=== PATIENT | female | born 2000 | race Caucasian/White ===

== ENCOUNTER 2021-04-11 00:01 | Emergency (ER) | payer MEDICAID ==
[2021-04-11] MEDS ORDERED: TYLENOL 325 MG PO ONE (00:28)
[2021-04-11] MEDS ORDERED: Sodium Chloride 0.9% 1000 ML 1,000 ML IV STA (00:28)
[2021-04-11] MEDS ORDERED: MORPHINE SULFATE 4 MG INJ IV ONE (00:28)
[2021-04-11] MEDS ORDERED: Zofran 4 MG/2 ML VIAL IV ONE (00:28)
--- NOTE | 2021-04-11 00:38 | ERPHSYRPT ---
- History of Present Illness Time Seen by Provider: 04/11/21 00:04 Source: patient Exam Limitations: no limitations Patient Subjective Stated Complaint: Patient states " I have been having ABD pain since yesterday and tonight it has gotten real sharp to where i can hardly walk." Triage Nursing Assessment: Patient arrived to ED and ambulated back to room without difficulty. Physician History: Location: epigastric Quality: sharp Radiation: none Severity: moderate Duration: 2 days Timing: gradual Modifying factors/associated signs and symptoms: shani Patient here with 2 days of of epigastric, periumbilical pain. No falls no trauma. States that her last menstrual cycle was 14 days ago. No fever no chills. States she mostly just feels nauseous. She is have some abnormal bowel movements. She has not seen her PCP for this. Timing/Duration: today Severity: moderate Modifying Factors: Improves With: other Associated Symptoms: denies symptoms Allergies/Adverse Reactions: Penicillins Allergy (Verified 04/11/21 00:09) Home Medications: No Reportable Medications [No Reported Medications] 04/11/21 [History] Hx Tetanus, Diphtheria Vaccination/Date Given: Yes Hx Influenza Vaccination/Date Given: No Hx Pneumococcal Vaccination/Date Given: No Immunizations Up to Date: Yes Travel Risk - International Travel Have you traveled outside of the country in past 3 weeks: No - Coronavirus Screening Are you exhibiting any of the following symptoms?: No Close contact with a COVID-19 positive Pt in past 14-21 Days: No - Vaccine Status Have you recieved a Covid-19 vaccination: No - Review of Systems Constitutional: No Fever, No Chills Eyes: No Symptoms Ears, Nose, & Throat: No Symptoms Respiratory: No Cough, No Dyspnea Cardiac: No Chest Pain, No Edema, No Syncope Abdominal/Gastrointestinal: Abdominal Pain, Nausea, No Vomiting, No Diarrhea Genitourinary Symptoms: No Dysuria Musculoskeletal: No Back Pain, No Neck Pain Skin: No Rash Neurological: No Dizziness, No Focal Weakness, No Sensory Changes Psychological: No Symptoms Endocrine: No Symptoms All Other Systems: Reviewed and Negative - Past Medical History Pertinent Past Medical History: No Neurological History: No Pertinent History ENT History: No Pertinent History Cardiac History: No Pertinent History Respiratory History: No Pertinent History Endocrine Medical History: No Pertinent History Musculoskeletal History: No Pertinent History GI Medical History: No Pertinent History History: No Pertinent History Psycho-Social History: No Pertinent History Female Reproductive Disorders: No Pertinent History - Past Surgical History Past Surgical History: No Neuro Surgical History: No Pertinent History Cardiac: No Pertinent History Respiratory: No Pertinent History Gastrointestinal: No Pertinent History Genitourinary: No Pertinent History Musculoskeletal: No Pertinent History Female Surgical History: No Pertinent History - Social History Smoking Status: Never smoker Exposure to second hand smoke: Yes Drug Use: none Patient Lives Alone: No - Female History Hx Last Menstrual Period: 03/05/21 Hx Now: No - Nursing Vital Signs Nursing Vital Signs: Initial Vital Signs Temperature 98.3 F 04/11/21 00:03 Pulse Rate 80 04/11/21 00:03 Respiratory Rate 18 04/11/21 00:03 Blood Pressure 136/92 04/11/21 00:03 O2 Sat by Pulse Oximetry 100 04/11/21 00:03 Pain Scale Pain Intensity 4 - Physical Exam General Appearance: no apparent distress, alert Eye Exam: PERRL/EOMI, eyes nml inspection Ears, Nose, Throat Exam: normal ENT inspection, TMs normal, pharynx normal, moist mucous membranes Neck Exam: normal inspection, non-tender, supple, full range of motion Respiratory Exam: normal breath sounds, lungs clear, No respiratory distress Cardiovascular Exam: regular rate/rhythm, normal heart sounds, normal peripheral pulses Gastrointestinal/Abdomen Exam: soft, normal bowel sounds, other (Abdominal pain no rebound no guarding: Still minimal tenderness.), No tenderness, No mass Back Exam: normal inspection, normal range of motion, No CVA tenderness, No vertebral tenderness Extremity Exam: normal inspection, normal range of motion, pelvis stable Neurologic Exam: alert, oriented x 3, cooperative, normal mood/affect, nml cerebellar function, nml station & gait, sensation nml, No motor deficits Skin Exam: normal color, warm, dry, No rash Lymphatic Exam: No adenopathy SpO2: 100 - Course Nursing assessment & vital signs reviewed: Yes Ordered Tests: Active Orders 24 hr Category Date Time Status IV Insertion STAT Care 04/11/21 00:28 Active ABDOMEN AND PELVIS W CONTRAST [CT] Stat Exams 04/11/21 01:37 Taken CBC W DIFF Stat Lab 04/11/21 00:38 Completed CMP Stat Lab 04/11/21 00:38 Completed HCG QUALITATIVE,SERUM Stat Lab 04/11/21 00:38 Completed LIPASE Stat Lab 04/11/21 00:38 Completed UA W/RFX UR CULTURE Stat Lab 04/11/21 02:42 Completed Medication Summary Discontinued Medications Generic Name Dose Route Start Last Admin Trade Name Chan PRTahir Reason Stop Dose Admin Acetaminophen 975 mg 04/11/21 00:28 04/11/21 00:45 Acetaminophen 325 Mg Tablet PO 04/11/21 00:29 975 mg STAT ONE Administration Acetaminophen Confirm 04/11/21 00:40 Acetaminophen 325 Mg Tablet Administered 04/11/21 00:41 Dose 975 mg .ROUTE .STK-MED ONE Sodium Chloride 1,000 mls @ 999 mls/hr 04/11/21 00:28 04/11/21 01:52 Sodium Chloride 0.9% 1000 Ml IV 04/11/21 01:28 Infused .Q1H1M STA Infusion Sodium Chloride Confirm 04/11/21 00:40 Sodium Chloride 0.9% 1000 Ml Administered 04/11/21 00:41 Dose 1,000 mls @ ud .ROUTE .STK-MED ONE Morphine Sulfate 4 mg 04/11/21 00:28 04/11/21 00:45 Morphine Sulfate 4 Mg/Ml Injection IV 04/11/21 00:29 4 mg STAT ONE Administration Morphine Sulfate Confirm 04/11/21 00:40 Morphine Sulfate 4 Mg/Ml Injection Administered 04/11/21 00:41 Dose 4 mg .ROUTE .STK-MED ONE Ondansetron HCl 4 mg 04/11/21 00:28 04/11/21 00:45 Ondansetron Hcl 4 Mg/2 Ml Vial IV 04/11/21 00:29 4 mg STAT ONE Administration Ondansetron HCl Confirm 04/11/21 00:39 Ondansetron Hcl 4 Mg/2 Ml Vial Administered 04/11/21 00:40 Dose 4 mg .ROUTE .STK-MED ONE Lab/Rad Data: Laboratory Result Diagrams 04/11/21 00:38 04/11/21 00:38 Laboratory Results 04/11/21 04/11/21 04/11/21 Range/Units 02:42 00:38 00:38 WBC (4.0-10.5) K/mm3 RBC (4.1-5.4) M/mm3 Hgb (12.0-16.0) gm/dl Hct (35-47) % MCV (78-100) fl MCH (26-32) pg MCHC (32-36) g/dl RDW (11.5-14.0) % Plt Count (150-450) K/mm3 MPV (7.5-11.0) fl Gran % (36.0-66.0) % Eos # (Auto) (0-0.5) Absolute Lymphs (auto) (1.0-4.6) Absolute Monos (auto) (0.0-1.3) Lymphocytes % (24.0-44.0) % Monocytes % (0.0-12.0) % Eosinophils % (0.00-5.0) % Basophils % (0.0-0.4) % Absolute Granulocytes (1.4-6.9) Basophils # (0-0.4) Sodium 140 (137-145) mmol/L Potassium 3.4 L (3.5-5.1) mmol/L Chloride 99 (98-107) mmol/L Carbon Dioxide 26 (22-30) mmol/L Anion Gap 18.0 H (5-15) MEQ/L BUN 15 (7-17) mg/dL Creatinine 0.92 (0.52-1.04) mg/dL Estimated GFR > 60.0 ML/MIN Glucose 124 H (74-106) mg/dL Calcium 9.8 (8.4-10.2) mg/dL Total Bilirubin 0.80 (0.2-1.3) mg/dL AST 20 (14-36) U/L ALT 15 (0-35) U/L Alkaline Phosphatase 90 (38-126) U/L Serum Total Protein 9.0 H (6.3-8.2) g/dL Albumin 5.2 H (3.5-5.0) g/dL Lipase 84 (23-300) U/L Serum , Qual NEGATIVE (Negative) Urine Color YELLOW (YELLOW) Urine Appearance CLEAR (CLEAR) Urine pH 5.0 (5-6) Ur Specific [place] S3 (1.005-1.025) Urine Protein NEGATIVE (Negative) Urine Ketones MODERATE (NEGATIVE) Urine Blood NEGATIVE (0-5) Drake/ul Urine Nitrite NEGATIVE (NEGATIVE) Urine Bilirubin NEGATIVE (NEGATIVE) Urine Urobilinogen NEGATIVE (0-1) mg/dL Ur Leukocyte Esterase TRACE (NEGATIVE) Urine WBC (Auto) 6-10 (0-5) /HPF Urine RBC (Auto) 0-2 (0-2) /HPF U Epithel Cells (Auto) FEW (FEW) /HPF Urine Bacteria (Auto) NONE SEEN (NEGATIVE) /HPF Urine Mucus (Auto) SLIGHT (NEGATIVE) /HPF Urine Culture Reflexed NO (NO) Urine Glucose NEGATIVE (NEGATIVE) mg/dL 04/11/21 Range/Units 00:38 WBC 9.8 (4.0-10.5) K/mm3 RBC 5.16 (4.1-5.4) M/mm3 Hgb 15.4 (12.0-16.0) gm/dl Hct 46.2 (35-47) % MCV 89.5 (78-100) fl MCH 29.8 (26-32) pg MCHC 33.3 (32-36) g/dl RDW 13.4 (11.5-14.0) % Plt Count 300 (150-450) K/mm3 MPV 10.1 (7.5-11.0) fl Gran % 70.8 H (36.0-66.0) % Eos # (Auto) 0.03 (0-0.5) Absolute Lymphs (auto) 1.79 (1.0-4.6) Absolute Monos (auto) 1.03 (0.0-1.3) Lymphocytes % 18.2 L (24.0-44.0) % Monocytes % 10.5 (0.0-12.0) % Eosinophils % 0.3 (0.00-5.0) % Basophils % 0.2 (0.0-0.4) % Absolute Granulocytes 6.97 H (1.4-6.9) Basophils # 0.02 (0-0.4) Sodium (137-145) mmol/L Potassium (3.5-5.1) mmol/L Chloride (98-107) mmol/L Carbon Dioxide (22-30) mmol/L Anion Gap (5-15) MEQ/L BUN (7-17) mg/dL Creatinine (0.52-1.04) mg/dL Estimated GFR ML/MIN Glucose (74-106) mg/dL Calcium (8.4-10.2) mg/dL Total Bilirubin (0.2-1.3) mg/dL AST (14-36) U/L ALT (0-35) U/L Alkaline Phosphatase (38-126) U/L Serum Total Protein (6.3-8.2) g/dL Albumin (3.5-5.0) g/dL Lipase (23-300) U/L Serum , Qual (Negative) Urine Color (YELLOW) Urine Appearance (CLEAR) Urine pH (5-6) Ur Specific [place] (1.005-1.025) Urine Protein (Negative) Urine Ketones (NEGATIVE) Urine Blood (0-5) Drake/ul Urine Nitrite (NEGATIVE) Urine Bilirubin (NEGATIVE) Urine Urobilinogen (0-1) mg/dL Ur Leukocyte Esterase (NEGATIVE) Urine WBC (Auto) (0-5) /HPF Urine RBC (Auto) (0-2) /HPF U Epithel Cells (Auto) (FEW) /HPF Urine Bacteria (Auto) (NEGATIVE) /HPF Urine Mucus (Auto) (NEGATIVE) /HPF Urine Culture Reflexed (NO) Urine Glucose (NEGATIVE) mg/dL - Progress Progress: improved Progress Note: 04/11/21 00:38 differential diagnosis includes kidney stone, compression fracture, infection, UTI, triple AAA - basic labs including: CBC, lipase, CMP, UA, urine - insert IV for fluids, pain meds, nausea control - consider imaging: CT ab/pelvis, or U/S based on labs and pain control 04/11/21 03:11 CT scan and labs unremarkable. Patient feeling improved. Will discharge patient home at this point time. Close follow-up with PCP. Return here for new or changing symptoms. - Departure Departure Disposition: Home Clinical Impression: Abdominal pain Condition: Stable Critical Care Time: No Referrals: DOCTOR,NO FAMILY [Primary Care Provider] - JUNAID GARCIA [ACTIVE STAFF] - Instructions: Acute Abdomen (Belly Pain), Adult (DC) Additional Instructions: See for abdominal reexam in 24-48 hours with a primary care physician. Return here for new or changing symptoms.
[2021-04-11] MEDS ORDERED: Zofran 4 MG/2 ML VIAL ONE (00:39)
[2021-04-11] MEDS ORDERED: TYLENOL 325 MG ONE (00:40)
[2021-04-11] MEDS ORDERED: Sodium Chloride 0.9% 1000 ML 1,000 ML ONE (00:40)
[2021-04-11] MEDS ORDERED: MORPHINE SULFATE 4 MG INJ ONE (00:40)
[2021-04-11 00:42] LABS: Absolute Neutrophil Ct (ANC) 6.97 (1.4-6.9); BASOPHIL % 0.2 % (0.0-0.4); Basophil (Absolute #) 0.02 (0-0.4); Eosinophil % 0.3 % (0.00-5.0); Eosinophil (Absolute #) 0.03 (0-0.5); Hematocrit 46.2 % (35-47); Hemoglobin 15.4 gm/dl (12.0-16.0); Lymphocyte (Absolute #) 1.79 (1.0-4.6); Lymphocytes % 18.2 % (24.0-44.0); Mean Cell Volume 89.5 fl (78-100); Mean Corpuscular Hemoglobin 29.8 pg (26-32); Mean Corpuscular Hgb Concent. 33.3 g/dl (32-36); Mean Platelet Volume 10.1 fl (7.5-11.0); Monocyte (Absolute #) 1.03 (0.0-1.3); Monocytes % 10.5 % (0.0-12.0); Neutrophil % 70.8 % (36.0-66.0); Platelet Count 300 K/mm3 (150-450); Red Blood Count 5.16 M/mm3 (4.1-5.4); Red Cell Distribution Width 13.4 % (11.5-14.0); White Blood Count 9.8 K/mm3 (4.0-10.5)
[2021-04-11 01:00] LABS: ALBUMIN 5.2 g/dL (3.5-5.0); ALKALINE PHOSPHATASE 90 U/L (38-126); BLOOD UREA NITROGEN 15 mg/dL (7-17); CHLORIDE 99 mmol/L (98-107); Calcium 9.8 mg/dL (8.4-10.2); Carbon Dioxide 26 mmol/L (22-30); Creatinine 1 0.92 mg/dL (0.52-1.04); EST GLOMERULAR FILTRATION RATE > 60.0 ML/MIN; Glucose 124 mg/dL (74-106); LIPASE 84 U/L (23-300); Potassium 3.4 mmol/L (3.5-5.1); SGOT/AST 20 U/L (14-36); SGPT/ALT 15 U/L (0-35); SODIUM 140 mmol/L (137-145)
[2021-04-11 02:59] LABS: Appearance CLEAR (CLEAR); Bilirubin NEGATIVE (NEGATIVE); Blood NEGATIVE Ery/ul (0-5); Glucose NEGATIVE (NEGATIVE); Ketones MODERATE (NEGATIVE); Leukocyte Esterase TRACE (NEGATIVE); Nitrite NEGATIVE (NEGATIVE); Protein,Urine Dip NEGATIVE (Negative); Urobilinogen NEGATIVE mg/dL (0-1)
[2021-04-11 03:03] VITALS: BP 139/91; PULSE 75
[2021-04-11 03:05] LABS: Bacteria NONE SEEN /HPF (NEGATIVE); Epithelial Cells FEW /HPF (FEW); Mucus SLIGHT /HPF (NEGATIVE); RBC 0-2 /HPF (0-2)
[2021-04-11 03:12] VITALS: O2SAT 100
--- NOTE | 2021-04-11 09:05 | XRAY ---
Indication: Abdomen pain, nausea, and vomiting. Appendicitis. Multiple contiguous axial images obtained through the abdomen and pelvis using 80 cc Isovue 370 contrast. Comparison: None. Lung bases are clear. Heart is not enlarged. Noncontrasted stomach and bowel loops appear nonobstructed. Normal appendix. No free fluid/air. Remaining liver, gallbladder, pancreas, spleen, adrenal glands, kidneys, ureters, bladder, uterus, and aorta are unremarkable. No pathologic retroperitoneal lymphadenopathy. Osseous structures intact. No ventral or inguinal hernias. Impression: CT abdomen/pelvis with contrast exam is negative. Comment: Preliminary interpretation made by [facility]. No critical discrepancy.
== END 2021-04-11 03:22 | disposition home or self-care (01) ==
LOC: ED 00:01
DX: R10.9 Unspecified abdominal pain (principal)
CPT/HCPCS: 36000; 36415; 74177; 80053; 81001; 81025; 83690; 85025; 96360; 96374; 96375; 99284; J2270; J2405; A9270-GY

== ENCOUNTER 2023-03-26 23:54 | Observation (INO) | payer OTHER ==
[2023-03-27 00:25] VITALS: BP 132/79; PULSE 101; RESP 18; TEMP 98.7; O2SAT 97
[2023-03-27 00:53] LABS: Amphetamine,Urine NEGATIVE (NEGATIVE); Barbiturate,Urine NEGATIVE (NEGATIVE); Benzodiazepine,Urine NEGATIVE (NEGATIVE); Cocaine,Urine NEGATIVE (NEGATIVE); Methadone,Urine NEGATIVE (NEGATIVE); Opiate,Urine NEGATIVE (NEGATIVE); PCP,Urine NEGATIVE (NEGATIVE); THC,Urine NEGATIVE (NEGATIVE)
[2023-03-27 01:09] LABS: ADD URINE CULTURE? NO (NO); Appearance Clear (Clear); Bacteria None Seen /HPF (None Seen); Bilirubin Negative (Negative); Blood Negative (Negative); Epithelial Cells Rare /HPF (None Seen); Glucose, Urine Negative (Negative); Hyaline Casts NONE SEEN /LPF (0-2); Ketones Negative (Negative); Leukocyte Esterase Trace (Negative); Nitrite Negative (Negative); Protein,Urine Dip Negative (Negative); RBC 0-2 /HPF (0-5); Specific Gravity <=1.005 (1.005-1.030); Urobilinogen 0.2 mg/dL (0.2)
[2023-03-27 02:06] LABS: CHLAMYDIA DNA DETECTED (NEGATIVE); GC DNA Probe NOT DETECTED (NEGATIVE)
[2023-03-27] MEDS ORDERED: Zithromax 250 MG TABLET PO ONE (02:14)
[2023-03-27] MEDS ORDERED: Zithromax 250 MG TABLET ONE (02:19)
== END 2023-03-27 03:00 | disposition home or self-care (01) ==
LOC: OB 23:54
PROVIDERS: ADMIT Obstetrics & Gynecology; ATTEND Obstetrics & Gynecology
DX: Z34.03 Encounter for supervision of normal first pregnancy, third trimester (principal); Z3A.31 31 weeks gestation of pregnancy
CPT/HCPCS: 80307; 81001; 87491; 87591; G0378; G0379; A9270-GY

== ENCOUNTER 2023-05-04 23:15 | Observation (INO) | payer OTHER ==
[2023-05-05 00:09] LABS: Amphetamine,Urine NEGATIVE (NEGATIVE); Barbiturate,Urine NEGATIVE (NEGATIVE); Benzodiazepine,Urine NEGATIVE (NEGATIVE); Cocaine,Urine NEGATIVE (NEGATIVE); Methadone,Urine NEGATIVE (NEGATIVE); Opiate,Urine NEGATIVE (NEGATIVE); PCP,Urine NEGATIVE (NEGATIVE); THC,Urine NEGATIVE (NEGATIVE)
[2023-05-05 00:45] LABS: Appearance Clear (Clear); Bacteria None Seen /HPF (None Seen); Bilirubin Negative (Negative); Blood Negative (Negative); Epithelial Cells None Seen /HPF (None Seen); Glucose, Urine Negative (Negative); Hyaline Casts NONE SEEN /LPF (0-2); Ketones Negative (Negative); Leukocyte Esterase Negative (Negative); Nitrite Negative (Negative); Ph 6.5 (4.6-8.0); Protein,Urine Dip Negative (Negative); RBC 0-2 /HPF (0-5); Urobilinogen 0.2 mg/dL (0.2); WBC 0-2 /HPF (0-5)
[2023-05-05 00:46] LABS: ADD URINE CULTURE? NO (NO)
[2023-05-05] MEDS ORDERED: XYLOCAINE 1% HCL 20 ML MDV IJ PRN (03:28)
[2023-05-05] MEDS ORDERED: Zofran 4 MG/2 ML VIAL IV PRN (03:28)
[2023-05-05] MEDS ORDERED: TYLENOL EXTRA STRENGTH 500 MG PO PRN (03:28)
[2023-05-05] MEDS ORDERED: CLINDAMYCIN-D5W 900 MG/50 ML*** 900 MG/50 ML BAG IV SCH (04:00)
[2023-05-05 04:15] VITALS: RESP 18; O2SAT 99
[2023-05-05 04:15] LABS: Absolute Neutrophil Ct (ANC) 12.95 x10^3/uL (1.4-6.9); BASOPHIL % 0.2 % (0.0-0.4); Basophil (Absolute #) 0.04 x10^3/uL (0-0.4); Eosinophil % 0.2 % (0.00-5.0); Eosinophil (Absolute #) 0.03 x10^3/uL (0-0.5); Hemoglobin 11.4 g/dL (12.0-16.0); IMMATURE GRAN # 0.24 x10^3u/L (0.00-0.03); IMMATURE GRAN % 1.4 % (0.00-0.4); Lymphocyte (Absolute #) 2.54 x10^3/uL (1.0-4.6); Lymphocytes % 14.9 % (24.0-44.0); Mean Cell Volume 86.5 fL (78-100); Mean Corpuscular Hemoglobin 27.4 pg (26-32); Mean Corpuscular Hgb Concent. 31.7 g/dL (32-36); Mean Platelet Volume 10.8 fL (7.5-11.0); Monocyte (Absolute #) 1.25 x10^3/uL (0.0-1.3); Monocytes % 7.3 % (0.0-12.0); Platelet Count 206 x10^3/uL (150-450); Red Blood Count 4.16 x10^6/uL (4.1-5.4); Red Cell Distribution Width 12.9 % (11.5-14.0); White Blood Count 17.1 x10^3/uL (4.0-10.5)
[2023-05-05 05:07] LABS: ABO TYPING O; Antibody Screen NEGATIVE (NEGATIVE); RH TYPING POSITIVE
[2023-05-05 10:25] LABS: CHLAMYDIA DNA NOT DETECTED (NEGATIVE); GC DNA Probe NOT DETECTED (NEGATIVE)
[2023-05-05] MEDS ORDERED: PITOCIN 30 UNITS/ LR 500 ML 30 UNITS/500 ML PLAST..BAG IV SCH (11:00)
[2023-05-05 11:16] VITALS: BP 129/87; PULSE 93; TEMP 97.8
[2023-05-05] MEDS ORDERED: Lactated Ringers 1,000 ML IV ONE (12:20)
== END 2023-05-05 11:15 | disposition home or self-care (01) ==
LOC: OB 23:15
PROVIDERS: ADMIT Obstetrics & Gynecology; ATTEND Obstetrics & Gynecology
DX: Z34.03 Encounter for supervision of normal first pregnancy, third trimester (principal); Z3A.37 37 weeks gestation of pregnancy
CPT/HCPCS: 36415; 80307; 81001; 85025; 86850; 86900; 86901; 87491; 87591; 87653; G0378; G0379

== ENCOUNTER 2023-05-06 16:40 | Observation (INO) | payer OTHER ==
[2023-05-06 21:51] VITALS: BP 124/78; PULSE 92; RESP 18; TEMP 98; O2SAT 98
== END 2023-05-06 21:45 | disposition home or self-care (01) ==
LOC: OB 16:40
PROVIDERS: ADMIT Obstetrics & Gynecology; ATTEND Obstetrics & Gynecology
DX: Z34.03 Encounter for supervision of normal first pregnancy, third trimester (principal); Z3A.37 37 weeks gestation of pregnancy
CPT/HCPCS: 36415; 84112; 84439; 84443

== ENCOUNTER 2023-05-13 04:30 | Inpatient (IN) | payer OTHER ==
[2023-05-13] MEDS ORDERED: STADOL 2 MG IV PRN (23:06)
[2023-05-13] MEDS ORDERED: Zofran 4 MG/2 ML VIAL IV PRN (23:06)
[2023-05-13 23:18] LABS: Creatinine, Urine Random 12.5 mg/dl; Protein Creatinine Ratio, Ran. 1.52 mg/mg (0.0-0.15)
[2023-05-13 23:35] LABS: Amphetamine,Urine NEGATIVE (NEGATIVE); Barbiturate,Urine NEGATIVE (NEGATIVE); Benzodiazepine,Urine NEGATIVE (NEGATIVE); Cocaine,Urine NEGATIVE (NEGATIVE); Methadone,Urine NEGATIVE (NEGATIVE); Opiate,Urine NEGATIVE (NEGATIVE); PCP,Urine NEGATIVE (NEGATIVE); THC,Urine NEGATIVE (NEGATIVE)
[2023-05-13 23:42] LABS: Absolute Neutrophil Ct (ANC) 7.86 x10^3/uL (1.4-6.9); BASOPHIL % 0.3 % (0.0-0.4); Basophil (Absolute #) 0.03 x10^3/uL (0-0.4); Eosinophil % 0.3 % (0.00-5.0); Eosinophil (Absolute #) 0.04 x10^3/uL (0-0.5); Hematocrit 38.4 % (35-47); Hemoglobin 11.9 g/dL (12.0-16.0); IMMATURE GRAN # 0.13 x10^3u/L (0.00-0.03); IMMATURE GRAN % 1.1 % (0.00-0.4); Lymphocyte (Absolute #) 2.47 x10^3/uL (1.0-4.6); Lymphocytes % 21.5 % (24.0-44.0); Mean Cell Volume 86.7 fL (78-100); Mean Corpuscular Hemoglobin 26.9 pg (26-32); Mean Platelet Volume 11.6 fL (7.5-11.0); Monocyte (Absolute #) 0.95 x10^3/uL (0.0-1.3); Monocytes % 8.3 % (0.0-12.0); Neutrophil % 68.5 % (36.0-66.0); Platelet Count 216 x10^3/uL (150-450); Red Blood Count 4.43 x10^6/uL (4.1-5.4); Red Cell Distribution Width 13.1 % (11.5-14.0); White Blood Count 11.5 x10^3/uL (4.0-10.5)
[2023-05-13] MEDS: Lactated Ringers 1,000 ML IV SCH (23:50)
[2023-05-13 23:53] LABS: ALBUMIN 3.9 g/dL (3.5-5.0); ANION GAP 10.3 MEQ/L (5-15); BILIRUBIN,TOTAL 0.5 mg/dL (0.2-1.3); Creatinine 1 0.56 mg/dL (0.52-1.04); EST GLOMERULAR FILTRATION RATE 133.1 ML/MIN; Potassium 3.8 mmol/L (3.5-5.1); Total Protein 7.8 g/dL (6.3-8.2)
[2023-05-13 23:55] LABS: Appearance Clear (Clear); Bacteria None Seen /HPF (None Seen); Bilirubin Negative (Negative); Blood Negative (Negative); Epithelial Cells None Seen /HPF (None Seen); Glucose, Urine Negative (Negative); Hyaline Casts NONE SEEN /LPF (0-2); Ketones Negative (Negative); Leukocyte Esterase Negative (Negative); Nitrite Negative (Negative); Protein,Urine Dip Negative (Negative); RBC 0-2 /HPF (0-5); Specific Gravity <=1.005 (1.005-1.030); Urobilinogen 0.2 mg/dL (0.2); WBC 0-2 /HPF (0-5)
[2023-05-14 00:09] LABS: ADD URINE CULTURE? NO (NO)
[2023-05-14 01:04] LABS: ABO TYPING O
[2023-05-14 01:05] LABS: Antibody Screen NEGATIVE (NEGATIVE); RH TYPING POSITIVE
[2023-05-14] MEDS: Lactated Ringers 1,000 ML IV SCH ×2 (01:28→08:36)
[2023-05-14] MEDS ORDERED: PITOCIN 30 UNITS/ LR 500 ML 500 ML IV ONE (07:03)
[2023-05-14] MEDS ORDERED: PITOCIN 30 UNITS/ LR 500 ML 30 UNITS/500 ML PLAST..BAG IV SCH (07:30)
[2023-05-14] MEDS ORDERED: Ephedrine Sulfate 50 MG/ML IV PRN (08:36)
[2023-05-14] MEDS ORDERED: Lactated Ringers 1,000 ML IV ONE (08:36)
[2023-05-14] MEDS ORDERED: Sensorcaine 0.25% 10 ML ONE (08:43)
[2023-05-14] MEDS ORDERED: FENTANYL 2 MCG-BUPIV 0.125%-NS 250 ML Epidur 250 ML EPIDURAL ONE (08:43)
[2023-05-14] MEDS ORDERED: FENTANYL 2 MCG-BUPIV 0.125%-NS 250 ML Epidur 250 ML EPIDURAL SCH (08:45)
[2023-05-14] MEDS ORDERED: XYLOCAINE 2%/Epi 1:200000 20ML VIAL MPF ONE (11:42)
[2023-05-14] MEDS ORDERED: SUBLIMAZE 100 MCG/2 ML ONE (11:42)
[2023-05-14] MEDS ORDERED: CORTISONE 1% CREAM TP PRN (16:27)
[2023-05-14] MEDS ORDERED: TYLENOL EXTRA STRENGTH 500 MG PO PRN (16:27)
[2023-05-14] MEDS ORDERED: Dermoplast Spray TP PRN (16:27)
[2023-05-14] MEDS ORDERED: TUCKS TP PRN (16:27)
[2023-05-14] MEDS ORDERED: MOTRIN 400 MG PO PRN (16:27)
[2023-05-14] MEDS ORDERED: Adacel Vial IM ONE (16:27)
[2023-05-14] MEDS ORDERED: LANSINOH 40 GM TOP PRN (16:27)
[2023-05-15 05:03] LABS: Absolute Neutrophil Ct (ANC) 13.05 x10^3/uL (1.4-6.9); BASOPHIL % 0.3 % (0.0-0.4); Basophil (Absolute #) 0.05 x10^3/uL (0-0.4); Eosinophil % 0.1 % (0.00-5.0); Eosinophil (Absolute #) 0.02 x10^3/uL (0-0.5); Hematocrit 32.1 % (35-47); Hemoglobin 10.2 g/dL (12.0-16.0); IMMATURE GRAN # 0.14 x10^3u/L (0.00-0.03); IMMATURE GRAN % 0.8 % (0.00-0.4); Lymphocyte (Absolute #) 2.52 x10^3/uL (1.0-4.6); Lymphocytes % 14.4 % (24.0-44.0); Mean Cell Volume 84.9 fL (78-100); Mean Corpuscular Hgb Concent. 31.8 g/dL (32-36); Mean Platelet Volume 11.8 fL (7.5-11.0); Monocyte (Absolute #) 1.67 x10^3/uL (0.0-1.3); Monocytes % 9.6 % (0.0-12.0); Neutrophil % 74.8 % (36.0-66.0); Platelet Count 173 x10^3/uL (150-450); Red Blood Count 3.78 x10^6/uL (4.1-5.4); Red Cell Distribution Width 13.5 % (11.5-14.0); White Blood Count 17.5 x10^3/uL (4.0-10.5)
[2023-05-15 05:49] LABS: Slide Review 1 YES
--- NOTE | 2023-05-15 09:07 | PCM.NOTE ---
Date and Time: 05/15/23904 Subjective Assessment: ppd 1 sp pt resting in bed and doing well without complaints. able to ambulate and tolerate diet vss afebrile abd; soft uterus; firm lochia; mild hgb 10 a/p sp ppd 1 doing well dc home tomorrow should fu in office in 3 wks OBJECTIVE DATA Vital Signs: Vital Signs - 24 hr Temp Pulse Resp BP BP Pulse Ox 05/15/23 04:41 98.5 F 82 18 119/83 98 05/15/23 00:11 98.5 F 90 18 121/67 99 05/14/23 20:00 98.1 F 92 H 18 141/86 98 05/14/23 19:00 98.6 F 88 18 116/69 100 05/14/23 18:00 98.3 F 94 H 18 117/66 99 05/14/23 17:30 98.3 F 105 H 18 128/76 99 05/14/23 17:00 98.3 F 88 18 121/72 99 05/14/23 16:30 98.3 F 88 18 131/77 99 05/14/23 16:15 98.3 F 97 H 18 147/96 98 05/14/23 16:00 98.3 F 85 18 126/89 98 05/14/23 15:45 98.3 F 92 H 18 128/90 98 05/14/23 15:30 98.3 F 84 18 149/91 99 05/14/23 15:00 98.3 F 105 H 18 99 05/14/23 14:30 98.3 F 111 H 18 138/78 99 05/14/23 14:00 98.4 F 105 H 20 140/78 98 05/14/23 13:30 98.4 F 98 H 20 98 05/14/23 13:00 98.4 F 98 H 20 143/74 100 05/14/23 12:30 98.4 F 112 H 20 124/75 100 05/14/23 12:00 98.4 F 121 H 20 144/68 100 05/14/23 11:30 98.2 F 88 20 100 05/14/23 11:00 98.2 F 88 20 125/68 100 05/14/23 10:30 98.2 F 86 20 100 05/14/23 10:00 98.2 F 86 20 100 Pain Assessment - Last Documented Pain Intensity [Lower] 10 Pain Intensity 2 Pain Scale Used 0-10 Pain Scale Intake and Output: Intake & Output 05/12/23 05/13/23 05/14/23 05/15/23 11:59 11:59 11:59 11:59 Intake Total 4000 1000 Output Total 600 Balance 4000 400 Weight 57.606 kg Lab Results: Lab Results-Last 24 Hours 05/15/23 Range/Units 04:21 WBC 17.5 H (4.0-10.5) x10^3/uL RBC 3.78 L (4.1-5.4) x10^6/uL Hgb 10.2 L (12.0-16.0) g/dL Hct 32.1 L (35-47) % MCV 84.9 (78-100) fL MCH 27.0 (26-32) pg MCHC 31.8 L (32-36) g/dL RDW 13.5 (11.5-14.0) % Plt Count 173 (150-450) x10^3/uL MPV 11.8 H (7.5-11.0) fL Gran % 74.8 H (36.0-66.0) % Immature Gran % (Auto) 0.8 H (0.00-0.4) % Nucleat RBC Rel Count 0.0 (0.00-0.1) % Eos # (Auto) 0.02 (0-0.5) x10^3/uL Immature Gran # (Auto) 0.14 H (0.00-0.03) x10^3u/L Absolute Lymphs (auto) 2.52 (1.0-4.6) x10^3/uL Absolute Monos (auto) 1.67 H (0.0-1.3) x10^3/uL Absolute Nucleated RBC 0.00 (0.00-0.01) x10^3u/L Lymphocytes % 14.4 L (24.0-44.0) % Monocytes % 9.6 (0.0-12.0) % Eosinophils % 0.1 (0.00-5.0) % Basophils % 0.3 (0.0-0.4) % Absolute Granulocytes 13.05 H (1.4-6.9) x10^3/uL Basophils # 0.05 (0-0.4) x10^3/uL Slides for Path Review YES Assessment/Plan (1) Vaginal delivery Current Visit: Yes Status: Acute Code(s): O80 - ENCOUNTER FOR FULL-TERM UNCOMPLICATED DELIVERY
[2023-05-15] MEDS: Docusate Sodium 100 MG PO SCH ×3 (09:21→21:33)
[2023-05-15] MEDS: FERREX 150 PO SCH (09:21)
[2023-05-15] MEDS ORDERED: TYLENOL SUSPENSION 160 MG/5 ML ONE (20:40)
[2023-05-15] MEDS: TYLENOL SUSPENSION 160 MG/5 ML PO PRN (21:14)
[2023-05-16 03:25] VITALS: RESP 18
[2023-05-16] MEDS: TYLENOL SUSPENSION 160 MG/5 ML PO PRN (06:03)
--- NOTE | 2023-05-16 07:57 | PCM.NOTE ---
Date and Time: 05/16/23 0756 Subjective Assessment: sp ppd 2 pt resting in bed and doing well vss afebrile abd; soft uterus; firm lochia; mild a/p sp ppd 2 dc home today fu office in 3 wks OBJECTIVE DATA Vital Signs: Vital Signs - 24 hr Temp Pulse Resp BP Pulse Ox 05/16/23 02:00 98.2 F 86 18 131/69 99 05/15/23 20:00 98.5 F 70 20 115/78 99 05/15/23 16:00 98.4 F 72 18 107/68 99 05/15/23 10:00 98.5 F 74 20 122/86 98 Pain Assessment - Last Documented Pain Intensity [Lower] 10 Pain Intensity 5 Pain Scale Used 0-10 Pain Scale Intake and Output: Intake & Output 05/13/23 05/14/23 05/15/23 05/16/23 11:59 11:59 11:59 11:59 Intake Total 4000 1500 1000 Output Total 600 Balance 4000 900 1000 Weight 57.606 kg Assessment/Plan (1) Vaginal delivery Current Visit: Yes Status: Acute Code(s): O80 - ENCOUNTER FOR FULL-TERM UNCOMPLICATED DELIVERY
--- NOTE | 2023-05-16 07:59 | PCM.DS ---
Discharge Summary Date of Admission: 05/14/23 04:30 Admitting Physician: ANGELITA RODRÍGUEZ Consults: Consults on Case 05/15/23 10:04 Navigation ONCE Primary Care Provider: LISA MONK DO Allergies Allergies Penicillins Allergy (Mild, Verified 05/04/23 23:46) Rash Hospital Summary - Hospital Course Hospital Course: pt admitted on may 14 for being in labor at 38 wks gestation and progressed to vaginal delivery on may 14 live baby girl without complication. during period did well and is now stable for discharge with stable hgb at 10. pt advised to fu in office in 3 wks for care. pt suffers from anxiety however declines any medication at this time. all questions answered to her satisfaction and at this time stable for discharge. - Vitals & Intake/Output Vital Signs: Vital Signs Temperature 98.2 F 05/16/23 02:00 Pulse Rate 86 05/16/23 02:00 Respiratory Rate 18 05/16/23 02:00 Blood Pressure 131/69 05/16/23 02:00 O2 Sat by Pulse Oximetry 99 05/16/23 02:00 Intake & Output: Intake & Output 05/13/23 05/14/23 05/15/23 05/16/23 11:59 11:59 11:59 11:59 Intake Total 4000 1500 1000 Output Total 600 Balance 4000 900 1000 Weight 57.606 kg - Lab Result Diagrams: 05/15/23 04:21 05/13/23 23:32 Micro Results-Entire Visit: Microbiology 05/14/23 11:15 Urine Culture - Preliminary Urine, Catheterized NO GROWTH TO DATE Final Diagnosis/Problem List - Final Discharge Diagnosis/Problem (1) Vaginal delivery Current Visit: Yes Status: Acute Code(s): O80 - ENCOUNTER FOR FULL-TERM UNCOMPLICATED DELIVERY - Discharge Disposition: Home, Self-Care Condition: Stable Prescriptions: No Action No Reportable Medications [No Reported Medications] Follow up with: LISA MONK DO [Primary Care Provider] - 3 weeks
[2023-05-16] MEDS: FERREX 150 PO SCH (09:48)
[2023-05-16] MEDS: Docusate Sodium 100 MG PO SCH (09:52)
[2023-05-16 18:22] VITALS: BP 129/88; PULSE 82; TEMP 98.9; O2SAT 99
== END 2023-05-16 16:55 | disposition home or self-care (01) | DRG 807 ==
LOC: OB 04:30 → OBSVTOIN 05-14 04:30
PROVIDERS: ADMIT Family Medicine; ATTEND Family Medicine
PROC: 10E0XZZ Delivery of Products of Conception, External Approach (ICD-10-PCS; principal; 2023-05-14)
PROC: 0HQ9XZZ Repair Perineum Skin, External Approach (ICD-10-PCS; 2023-05-14)
DX: O70.0 First degree perineal laceration during delivery (principal); Z37.0 Single live birth; Z3A.38 38 weeks gestation of pregnancy; F41.9 Anxiety disorder, unspecified; Z20.828 Contact with and (suspected) exposure to other viral communicable diseases
CPT/HCPCS: 36415; 80053; 80307; 81001; 82570; 84112; 84156; 84550; 85025; 86850; 86900; 86901; 87086; 90471; 90715; 96372; G0378; G0379; J0595; J2405; J2590; J3010; A9270-GY

== ENCOUNTER 2023-09-14 20:39 | Emergency (ER) | payer OTHER ==
--- NOTE | 2023-09-14 20:52 | ERPHSYRPT ---
- History of Present Illness Time Seen by Provider: 09/14/23 20:40 Historian: patient Exam Limitations: no limitations Physician History: 22yo f presents by private vehicle for chest tightness located in left upper anterior chest lasting 5d, states she does feel some discomfort in her back as well w/ deep breaths. Pt had vaginal delivery 3mo ago w/o complications. Pt s tates she has had intermittent HAs for the past 3d. Pt denies any vision changes, denies any abdominal pain or vaginal bleeding. Pt does report hx of anxiety. Pt currently denies cp, soa, n/v/d, recent sick contacts. Timing/Duration: day(s) (5) Activities at Onset: none Quality: tightness Location: other (left anterior) Chest Pain Radiation: back Severity of Pain-Max: mild Severity of Pain-Current: mild Modifying Factors: Improves With: nothing Associated Symptoms: headache, back pain, No nausea, No vomiting, No palpitations, No heartburn, No abdominal pain, No shortness of breath, No cough, No hurts to breathe, No fever, No fatigue, No weakness, No syncope Prior Chest Pain/Cardiac Workup: no prior chest pain, no prior cardiac workup Nitro Today/Relief: no nitro taken today Aspirin Treatment Today: no aspirin today Allergies/Adverse Reactions: Penicillins Allergy (Mild, Verified 09/14/23 20:40) Rash Hx Tetanus, Diphtheria Vaccination/Date Given: Yes Hx Influenza Vaccination/Date Given: No Hx Pneumococcal Vaccination/Date Given: No - Review of Systems Constitutional: No Symptoms Respiratory: No Symptoms Cardiac: Chest Pain, No Palpitations, No Syncope Abdominal/Gastrointestinal: No Abdominal Pain, No Nausea, No Vomiting, No Diarrhea Genitourinary Symptoms: No Symptoms Neurological: No Dizziness, No Focal Weakness, No Lethargy, No Sensory Changes, No Speech Changes Psychological: Anxiety - Past Medical History Pertinent Past Medical History: Yes Neurological History: No Pertinent History ENT History: No Pertinent History Cardiac History: No Pertinent History Respiratory History: No Pertinent History Endocrine Medical History: Hyperthyroidism Musculoskeletal History: No Pertinent History GI Medical History: No Pertinent History History: No Pertinent History Psycho-Social History: Anxiety Female Reproductive Disorders: No Pertinent History - Past Surgical History Past Surgical History: No Neuro Surgical History: No Pertinent History Cardiac: No Pertinent History Respiratory: No Pertinent History Gastrointestinal: No Pertinent History Genitourinary: No Pertinent History Musculoskeletal: No Pertinent History Female Surgical History: No Pertinent History - Female History Hx Now: No - Social History Smoking Status: Never smoker Exposure to second hand smoke: No Drug Use: none Patient Lives Alone: No - Nursing Vital Signs Nursing Vital Signs: Initial Vital Signs Temperature 97.7 F 09/14/23 20:40 Pulse Rate 90 09/14/23 20:40 Respiratory Rate 18 09/14/23 20:40 Blood Pressure 121/88 09/14/23 20:40 O2 Sat by Pulse Oximetry 99 09/14/23 20:40 Pain Scale Pain Intensity 6 - Physical Exam General Appearance: no apparent distress, alert Eye Exam: PERRL/EOMI, eyes nml inspection Respiratory Exam: normal breath sounds, lungs clear, airway intact, No chest tenderness, No respiratory distress, No diminished breath sounds Cardiovascular Exam: regular rate/rhythm, normal heart sounds, normal peripheral pulses, capillary refill <2 sec, No edema Gastrointestinal/Abdomen Exam: soft, No tenderness, No distention Back Exam: normal inspection Extremity Exam: normal inspection, No parasthesia, No pedal edema, No swelling Neurologic Exam: alert, oriented x 3, cooperative SpO2 Interpretation: normal SpO2: 98 O2 Delivery: Room Air - Course EKG Interpreted by Me: RATE (85), Sinus Rhythm, NORMAL ST-T, Other (qtcb [id number]) Ordered Tests: Active Orders 24 hr Category Date Time Status EKG-ER Only STAT Care 09/14/23 20:40 Active CHEST 1 VIEW (PORTABLE) Stat Exams 09/14/23 20:41 Taken CBC W DIFF Stat Lab 09/14/23 21:00 Completed CMP Stat Lab 09/14/23 21:00 Completed HCG QUALITATIVE, URINE Stat Lab 09/14/23 Ordered NT PRO BNPII Stat Lab 09/14/23 21:00 Completed TROPONIN Q4H Lab 09/14/23 21:00 Completed TROPONIN Q4H Lab 09/15/23 00:45 Ordered TROPONIN Q4H Lab 09/15/23 04:45 Ordered Lab/Rad Data: Laboratory Result Diagrams 09/14/23 21:00 09/14/23 21:00 Laboratory Results 09/14/23 09/14/23 09/14/23 Range/Units 21:00 21:00 21:00 WBC (4.0-10.5) x10^3/uL RBC (4.1-5.4) x10^6/uL Hgb (12.0-16.0) g/dL Hct (35-47) % MCV (78-100) fL MCH (26-32) pg MCHC (32-36) g/dL RDW (11.5-14.0) % Plt Count (150-450) x10^3/uL MPV (7.5-11.0) fL Gran % (36.0-66.0) % Immature Gran % (Auto) (0.00-0.4) % Nucleat RBC Rel Count (0.00-0.1) % Eos # (Auto) (0-0.5) x10^3/uL Immature Gran # (Auto) (0.00-0.03) x10^3u/L Absolute Lymphs (auto) (1.0-4.6) x10^3/uL Absolute Monos (auto) (0.0-1.3) x10^3/uL Absolute Nucleated RBC (0.00-0.01) x10^3u/L Lymphocytes % (24.0-44.0) % Monocytes % (0.0-12.0) % Eosinophils % (0.00-5.0) % Basophils % (0.0-0.4) % Absolute Granulocytes (1.4-6.9) x10^3/uL Basophils # (0-0.4) x10^3/uL Sodium 141 (135-145) mmol/L Potassium 4.1 (3.5-5.1) mmol/L Chloride 106 (98-107) mmol/L Carbon Dioxide 26 (22-30) mmol/L Anion Gap 13.8 (5-15) MEQ/L BUN 18 H (7-17) mg/dL Creatinine 0.81 (0.52-1.04) mg/dL Estimated GFR 105.9 ML/MIN Glucose 96 (74-106) mg/dL Calcium 9.5 (8.4-10.2) mg/dL Total Bilirubin 0.30 (0.2-1.3) mg/dL AST 23 (14-36) U/L ALT 23 (0-35) U/L Alkaline Phosphatase 90 (38-126) U/L Troponin I < 0.012 (0.000-0.033) ng/mL NT-Pro-B Natriuret Pep < 20.0 (<300) pg/mL Serum Total Protein 8.5 H (6.3-8.2) g/dL Albumin 4.6 (3.5-5.0) g/dL 09/14/23 Range/Units 21:00 WBC 6.6 (4.0-10.5) x10^3/uL RBC 5.10 (4.1-5.4) x10^6/uL Hgb 14.0 (12.0-16.0) g/dL Hct 43.6 (35-47) % MCV 85.5 (78-100) fL MCH 27.5 (26-32) pg MCHC 32.1 (32-36) g/dL RDW 13.0 (11.5-14.0) % Plt Count 307 (150-450) x10^3/uL MPV 9.6 (7.5-11.0) fL Gran % 48.2 (36.0-66.0) % Immature Gran % (Auto) 0.3 (0.00-0.4) % Nucleat RBC Rel Count 0.0 (0.00-0.1) % Eos # (Auto) 0.07 (0-0.5) x10^3/uL Immature Gran # (Auto) 0.02 (0.00-0.03) x10^3u/L Absolute Lymphs (auto) 2.62 (1.0-4.6) x10^3/uL Absolute Monos (auto) 0.65 (0.0-1.3) x10^3/uL Absolute Nucleated RBC 0.00 (0.00-0.01) x10^3u/L Lymphocytes % 40.0 (24.0-44.0) % Monocytes % 9.9 (0.0-12.0) % Eosinophils % 1.1 (0.00-5.0) % Basophils % 0.5 (0.0-0.4) % Absolute Granulocytes 3.16 (1.4-6.9) x10^3/uL Basophils # 0.03 (0-0.4) x10^3/uL Sodium (135-145) mmol/L Potassium (3.5-5.1) mmol/L Chloride (98-107) mmol/L Carbon Dioxide (22-30) mmol/L Anion Gap (5-15) MEQ/L BUN (7-17) mg/dL Creatinine (0.52-1.04) mg/dL Estimated GFR ML/MIN Glucose (74-106) mg/dL Calcium (8.4-10.2) mg/dL Total Bilirubin (0.2-1.3) mg/dL AST (14-36) U/L ALT (0-35) U/L Alkaline Phosphatase (38-126) U/L Troponin I (0.000-0.033) ng/mL NT-Pro-B Natriuret Pep (<300) pg/mL Serum Total Protein (6.3-8.2) g/dL Albumin (3.5-5.0) g/dL - Progress Progress: improved, re-examined Air Movement: good Progress Note: 09/14/23 22:23 labs grossly abnormal troponin negative, ekg normal sinus no chest pain on re-examination low suspicion that discomfort is cardiac in nature based on hx, exam and lab findings, likely anxiety related pt and mother report significant hx of anxiety, possibly even agoraphobia w/ pt refusing to leave house most days plan to dc home w/ prn hydroxyzine 25mg for acute episodes of anxiety pt has no PCP, will provide w/ list of PCPs in the area to establish care, could likely benefit from daily anxiolytic return to ED if: develop shortness of breath, loss of consciousness, chest pain that does not resolve Blood Culture(s) Obtained: No Antibiotics given: No Counseled pt/family regarding: diagnosis, need for follow-up, rad results Medical Desision Making - Diagnostic Testing Diagnostic test were ordered, analyzed, and reviewed by me: Yes Radiological Interpretation: Interpreted by me, Reviewed by me - Risk of complications Minimal Risk: Minimal risk of morbidity - Departure Departure Disposition: Home Clinical Impression: Chest tightness, Anxiety Condition: Stable Critical Care Time: No Referrals: DOCTOR,NO FAMILY [Primary Care Provider] - Follow up/PCP as directed Additional Instructions: plan to dc home w/ prn hydroxyzine 25mg for acute episodes of anxiety pt has no PCP, will provide w/ list of PCPs in the area to establish care, could likely benefit from daily anxiolytic return to ED if: develop shortness of breath, loss of consciousness, chest pain that does not resolve Prescriptions: Hydroxyzine HCl 25 mg [Atarax 25 mg] 25 mg PO Q8H PRN #20 tablet PRN Reason: Anxiety
[2023-09-14 20:54] VITALS: TEMP 97.7
[2023-09-14 21:02] LABS: Absolute Neutrophil Ct (ANC) 3.16 x10^3/uL (1.4-6.9); BASOPHIL % 0.5 % (0.0-0.4); Basophil (Absolute #) 0.03 x10^3/uL (0-0.4); Eosinophil % 1.1 % (0.00-5.0); Eosinophil (Absolute #) 0.07 x10^3/uL (0-0.5); Hematocrit 43.6 % (35-47); IMMATURE GRAN # 0.02 x10^3u/L (0.00-0.03); IMMATURE GRAN % 0.3 % (0.00-0.4); Lymphocyte (Absolute #) 2.62 x10^3/uL (1.0-4.6); Mean Cell Volume 85.5 fL (78-100); Mean Corpuscular Hemoglobin 27.5 pg (26-32); Mean Corpuscular Hgb Concent. 32.1 g/dL (32-36); Mean Platelet Volume 9.6 fL (7.5-11.0); Monocyte (Absolute #) 0.65 x10^3/uL (0.0-1.3); Monocytes % 9.9 % (0.0-12.0); Neutrophil % 48.2 % (36.0-66.0); Platelet Count 307 x10^3/uL (150-450); White Blood Count 6.6 x10^3/uL (4.0-10.5)
[2023-09-14 21:18] LABS: ALBUMIN 4.6 g/dL (3.5-5.0); ANION GAP 13.8 MEQ/L (5-15); BILIRUBIN,TOTAL 0.3 mg/dL (0.2-1.3); Calcium 9.5 mg/dL (8.4-10.2); Creatinine 1 0.81 mg/dL (0.52-1.04); EST GLOMERULAR FILTRATION RATE 105.9 ML/MIN; Potassium 4.1 mmol/L (3.5-5.1); Total Protein 8.5 g/dL (6.3-8.2)
[2023-09-14 21:52] VITALS: O2SAT 98
[2023-09-14 22:13] VITALS: BP 112/79; PULSE 98; RESP 16
--- NOTE | 2023-09-15 07:42 | XRAY ---
Indication: Chest pain. Comparison: None Portable chest demonstrates minimal left base subsegmental atelectasis/scarring. Remaining heart, lungs, and bony thorax normal.
== END 2023-09-14 22:35 | disposition home or self-care (01) ==
LOC: ED 20:39
DX: F41.9 Anxiety disorder, unspecified (principal); R07.9 Chest pain, unspecified; R51.9 Headache, unspecified
CPT/HCPCS: 36415; 71045; 80053; 83880; 84484; 85025; 93005; 99283

== ENCOUNTER 2023-12-27 13:49 | Emergency (ER) | payer OTHER ==
[2023-12-27 15:25] VITALS: BP 118/74; PULSE 90; RESP 20; TEMP 97.3; O2SAT 99
[2023-12-27] MEDS ORDERED: Sodium Chloride 0.9% 1000 ML 1,000 ML ONE (15:34)
[2023-12-27] MEDS ORDERED: Zofran 4 MG/2 ML VIAL ONE (15:34)
[2023-12-27 15:49] LABS: Absolute Neutrophil Ct (ANC) 8.63 x10^3/uL (1.56-6.13); BASOPHIL % 0.3 % (0.1-1.2); Basophil (Absolute #) 0.03 x10^3/uL (0.01-0.08); Eosinophil % 0.1 % (0.7-5.8); Eosinophil (Absolute #) 0.01 x10^3/uL (0.04-0.36); Hemoglobin 14.2 g/dL (11.2-15.7); IMMATURE GRAN # 0.03 x10^3u/L (0.001-0.031); IMMATURE GRAN % 0.3 % (0.001-0.429); Lymphocyte (Absolute #) 1.38 x10^3/uL (1.18-3.74); Lymphocytes % 12.9 % (19.3-51.7); Mean Corpuscular Hemoglobin 28.1 pg (25.6-32.2); Mean Platelet Volume 11.2 fL (9.4-12.3); Monocyte (Absolute #) 0.62 x10^3/uL (0.24-0.86); Monocytes % 5.8 % (4.7-12.5); Neutrophil % 80.6 % (34.0-71.1); Platelet Count 236 x10^3/uL (182-369); Red Blood Count 5.06 x10^6/uL (3.93-5.22); Red Cell Distribution Width 14.4 % (11.7-14.4); White Blood Count 10.7 x10^3/uL (3.98-10.04)
[2023-12-27] MEDS: Zofran 4 MG/2 ML VIAL IV ONE (16:06)
[2023-12-27] MEDS: Sodium Chloride 0.9% 1000 ML 1,000 ML IV STA (16:07)
[2023-12-27 16:34] LABS: ALBUMIN 4.3 g/dL (3.5-5.0); ANION GAP 12.7 MEQ/L (5-15); BILIRUBIN,TOTAL 0.6 mg/dL (0.2-1.3); Calcium 9.1 mg/dL (8.4-10.2); Creatinine 1 0.56 mg/dL (0.52-1.04); EST GLOMERULAR FILTRATION RATE 132.3 ML/MIN; Potassium 3.6 mmol/L (3.5-5.1); Total Protein 7.4 g/dL (6.3-8.2)
[2023-12-27 17:11] LABS: Appearance Clear (Clear); Bacteria Rare /HPF (None Seen); Bilirubin Negative (Negative); Blood Negative (Negative); Epithelial Cells Few /HPF (None Seen); Glucose, Urine Negative (Negative); Hyaline Casts NONE SEEN /LPF (0-2); Ketones 40 (Negative); Leukocyte Esterase Trace (Negative); Nitrite Negative (Negative); Ph 6.5 (4.6-8.0); Protein,Urine Dip Negative (Negative); RBC 0-2 /HPF (0-5); Specific Gravity 1.015 (1.005-1.030); Urobilinogen 0.2 mg/dL (0.2)
[2023-12-27 17:13] LABS: ADD URINE CULTURE? NO (NO)
--- NOTE | 2023-12-27 17:38 | ERPHSYRPT ---
- History of Present Illness Time Seen by Provider: 12/27/23 14:51 Source: patient Exam Limitations: no limitations Patient Subjective Stated Complaint: Vomiting- 6 weeks Triage Nursing Assessment: Patient ambulated back to ED and transferred self to bed. Patient A+O X 3. Patient's skin pink, warm and dry. Patient states she is approx 6 weeks and has had N/V bad for one week. Patient denies pain or discomfort. Patient called Dr. Copeland's office and was told to come to ED for eval. Physician History: 23 years old 2 para 1 at almost 6 weeks gestation per LMP presented in the ER with complains of increase vomiting with nausea despite taking Zofran. Patient is sent in here by OB for baseline workup and hydration. Patient denies any abdominal pain, diarrhea. No pelvic cramping or vaginal bleeding/discharge. No fever or chills reported. Denies any sick contact. Feels weak fatigued t ired and dehydrated as she is not able to keep up with her hydration. Allergies/Adverse Reactions: Penicillins Allergy (Mild, Verified 12/27/23 15:16) Rash Hx Tetanus, Diphtheria Vaccination/Date Given: Yes Hx Influenza Vaccination/Date Given: No Hx Pneumococcal Vaccination/Date Given: No Immunizations Up to Date: Yes Travel Risk - International Travel Have you traveled outside of the country in past 3 weeks: No - Emerging Infectious Disease Are you exhibiting symptoms associated with any current EIDs: No - Review of Systems Constitutional: Fatigue, Weakness Eyes: No Symptoms Ears, Nose, & Throat: No Symptoms Respiratory: No Symptoms Cardiac: No Symptoms Abdominal/Gastrointestinal: Nausea, Vomiting Genitourinary Symptoms: No Symptoms Musculoskeletal: No Symptoms Skin: No Symptoms Endocrine: No Symptoms Hematologic/Lymphatic: No Symptoms Immunological/Allergic: No Symptoms - Past Medical History Pertinent Past Medical History: Yes Neurological History: No Pertinent History ENT History: No Pertinent History Cardiac History: No Pertinent History Respiratory History: No Pertinent History Endocrine Medical History: Hyperthyroidism Musculoskeletal History: No Pertinent History GI Medical History: No Pertinent History History: No Pertinent History Psycho-Social History: Anxiety Female Reproductive Disorders: No Pertinent History - Past Surgical History Past Surgical History: No Neuro Surgical History: No Pertinent History Cardiac: No Pertinent History Respiratory: No Pertinent History Gastrointestinal: No Pertinent History Genitourinary: No Pertinent History Musculoskeletal: No Pertinent History Female Surgical History: No Pertinent History - Female History Hx Last Menstrual Period: unknown Hx Now: No - Social History Smoking Status: Never smoker Exposure to second hand smoke: No Drug Use: none Patient Lives Alone: No - Social Determinants of Health Will the patient participate in the screening: Yes Do you worry about a steady place to live?: No Do you have any problems with any of the following?: No known problems In the past 12 months,have you had to go without utilities?: No Transportation Issues: No Has anyone in your support network made you feel unsafe?: No Have you or anyone in your house had to go without enough: No - Nursing Vital Signs Nursing Vital Signs: Initial Vital Signs Temperature 97.3 F 12/27/23 15:18 Pulse Rate 90 12/27/23 15:18 Respiratory Rate 20 12/27/23 15:18 Blood Pressure 118/74 12/27/23 15:18 O2 Sat by Pulse Oximetry 99 12/27/23 15:18 Pain Scale Pain Intensity 0 - Physical Exam General Appearance: no apparent distress, alert Eye Exam: PERRL/EOMI Ears, Nose, Throat Exam: normal ENT inspection, pharynx normal, moist mucous membranes Neck Exam: normal inspection, non-tender, supple, full range of motion Respiratory Exam: normal breath sounds, lungs clear Cardiovascular Exam: regular rate/rhythm, normal heart sounds Gastrointestinal/Abdomen Exam: soft, normal bowel sounds, No tenderness Back Exam: normal inspection, normal range of motion Extremity Exam: normal inspection, normal range of motion Neurologic Exam: alert, oriented x 3, cooperative, lithostripper II-XII nml as tested Skin Exam: normal color SpO2 Interpretation: normal SpO2: 99 O2 Delivery: Room Air Ordered Tests: Active Orders 24 hr Category Date Time Status IV Insertion STAT Care 12/27/23 15:24 Active CBC W DIFF Stat Lab 12/27/23 15:40 Completed CMP Stat Lab 12/27/23 15:40 Completed HCG, Quantitative (Inhouse) Stat Lab 12/27/23 Completed LIPASE Stat Lab 12/27/23 15:40 Completed UA W/RFX UR CULTURE Stat Lab 12/27/23 16:59 Completed Medication Summary Discontinued Medications Generic Name Dose Route Start Last Admin Trade Name Freq PRN Reason Stop Dose Admin Sodium Chloride 1,000 mls @ 999 mls/hr 12/27/23 15:24 12/27/23 17:08 Sodium Chloride 0.9% 1000 Ml IV 12/27/23 16:24 Infused .Q1H1M STA Infusion Sodium Chloride Confirm 12/27/23 15:34 Sodium Chloride 0.9% 1000 Ml Administered 12/27/23 15:35 Dose 1,000 mls @ ud .ROUTE .STK-MED ONE Ondansetron HCl 4 mg 12/27/23 15:24 12/27/23 16:06 Ondansetron Hcl 4 Mg/2 Ml Vial IV 12/27/23 15:25 4 mg STAT ONE Administration Ondansetron HCl Confirm 12/27/23 15:34 Ondansetron Hcl 4 Mg/2 Ml Vial Administered 12/27/23 15:35 Dose 4 mg .ROUTE .STK-MED ONE Lab/Rad Data: Laboratory Result Diagrams 12/27/23 15:40 12/27/23 15:40 Laboratory Results 12/27/23 12/27/23 12/27/23 Range/Units Unknown 16:59 15:40 WBC (3.98-10.04) x10^3/uL RBC (3.93-5.22) x10^6/uL Hgb (11.2-15.7) g/dL Hct (34.1-44.9) % MCV (79.4-94.8) fL MCH (25.6-32.2) pg MCHC (32.2-35.5) g/dL RDW (11.7-14.4) % Plt Count (182-369) x10^3/uL MPV (9.4-12.3) fL Gran % (34.0-71.1) % Immature Gran % (Auto) (0.001-0.429) % Nucleat RBC Rel Count (0.00-0.2) % Eos # (Auto) (0.04-0.36) x10^3/uL Immature Gran # (Auto) (0.001-0.031) x10^3u/L Absolute Lymphs (auto) (1.18-3.74) x10^3/uL Absolute Monos (auto) (0.24-0.86) x10^3/uL Absolute Nucleated RBC (0.00-0.012) x10^3u/L Lymphocytes % (19.3-51.7) % Monocytes % (4.7-12.5) % Eosinophils % (0.7-5.8) % Basophils % (0.1-1.2) % Absolute Granulocytes (1.56-6.13) x10^3/uL Basophils # (0.01-0.08) x10^3/uL Sodium 136 (135-145) mmol/L Potassium 3.6 (3.5-5.1) mmol/L Chloride 103 (98-107) mmol/L Carbon Dioxide 24 (22-30) mmol/L Anion Gap 12.7 (5-15) MEQ/L BUN 7 (7-17) mg/dL Creatinine 0.56 (0.52-1.04) mg/dL Estimated GFR 132.3 ML/MIN Glucose 116 H (74-106) mg/dL Calcium 9.1 (8.4-10.2) mg/dL Total Bilirubin 0.60 (0.2-1.3) mg/dL AST 23 (14-36) U/L ALT 19 (0-35) U/L Alkaline Phosphatase 61 (38-126) U/L Serum Total Protein 7.4 (6.3-8.2) g/dL Albumin 4.3 (3.5-5.0) g/dL Lipase 36 (23-300) U/L Beta HCG, Quant 39724 mIU/ml Urine Color Yellow (Yellow) Urine Appearance Clear (Clear) Urine pH 6.5 (4.6-8.0) Ur Specific [place] 1.015 (1.005-1.030) Urine Protein Negative (Negative) Urine Glucose (UA) Negative (Negative) mg/dL Urine Ketones 40 A (Negative) Urine Blood Negative (Negative) Urine Nitrite Negative (Negative) Urine Bilirubin Negative (Negative) Urine Urobilinogen 0.2 (0.2) mg/dL Ur Leukocyte Esterase Trace A (Negative) U Hyaline Cast (Auto) NONE SEEN (0-2) /LPF Urine Microscopic RBC 0-2 (0-5) /HPF Urine Microscopic WBC 6-10 A (0-5) /HPF Ur Epithelial Cells Few (None Seen) /HPF Urine Bacteria Rare A (None Seen) /HPF Urine Culture Reflexed NO (NO) 12/27/23 Range/Units 15:40 WBC 10.7 H (3.98-10.04) x10^3/uL RBC 5.06 (3.93-5.22) x10^6/uL Hgb 14.2 (11.2-15.7) g/dL Hct 43.0 (34.1-44.9) % MCV 85.0 (79.4-94.8) fL MCH 28.1 (25.6-32.2) pg MCHC 33.0 (32.2-35.5) g/dL RDW 14.4 (11.7-14.4) % Plt Count 236 (182-369) x10^3/uL MPV 11.2 (9.4-12.3) fL Gran % 80.6 H (34.0-71.1) % Immature Gran % (Auto) 0.3 (0.001-0.429) % Nucleat RBC Rel Count 0.0 (0.00-0.2) % Eos # (Auto) 0.01 L (0.04-0.36) x10^3/uL Immature Gran # (Auto) 0.03 (0.001-0.031) x10^3u/L Absolute Lymphs (auto) 1.38 (1.18-3.74) x10^3/uL Absolute Monos (auto) 0.62 (0.24-0.86) x10^3/uL Absolute Nucleated RBC 0.00 (0.00-0.012) x10^3u/L Lymphocytes % 12.9 L (19.3-51.7) % Monocytes % 5.8 (4.7-12.5) % Eosinophils % 0.1 L (0.7-5.8) % Basophils % 0.3 (0.1-1.2) % Absolute Granulocytes 8.63 H (1.56-6.13) x10^3/uL Basophils # 0.03 (0.01-0.08) x10^3/uL Sodium (135-145) mmol/L Potassium (3.5-5.1) mmol/L Chloride (98-107) mmol/L Carbon Dioxide (22-30) mmol/L Anion Gap (5-15) MEQ/L BUN (7-17) mg/dL Creatinine (0.52-1.04) mg/dL Estimated GFR ML/MIN Glucose (74-106) mg/dL Calcium (8.4-10.2) mg/dL Total Bilirubin (0.2-1.3) mg/dL AST (14-36) U/L ALT (0-35) U/L Alkaline Phosphatase (38-126) U/L Serum Total Protein (6.3-8.2) g/dL Albumin (3.5-5.0) g/dL Lipase (23-300) U/L Beta HCG, Quant mIU/ml Urine Color (Yellow) Urine Appearance (Clear) Urine pH (4.6-8.0) Ur Specific [place] (1.005-1.030) Urine Protein (Negative) Urine Glucose (UA) (Negative) mg/dL Urine Ketones (Negative) Urine Blood (Negative) Urine Nitrite (Negative) Urine Bilirubin (Negative) Urine Urobilinogen (0.2) mg/dL Ur Leukocyte Esterase (Negative) U Hyaline Cast (Auto) (0-2) /LPF Urine Microscopic RBC (0-5) /HPF Urine Microscopic WBC (0-5) /HPF Ur Epithelial Cells (None Seen) /HPF Urine Bacteria (None Seen) /HPF Urine Culture Reflexed (NO) - Progress Progress: improved Progress Note: 12/27/23 17:40 23 years old is evaluated in the ER for hyperemesis gravidarum with feeling weak fatigued tired and dehydrated. Patient is not tachypneic or tachycardic. Given fluids and Zofran, on reevaluation she is feeling much better. Patient workup showed normal white count, fairly unremarkable chemistries, questionable element of UTI and started on Macrobid as patient has anaphylactic reaction with penicil neelam and related medications. No vaginal bleeding discharge or cramping. Recommended increase hydration and outpatient follow-up. Discussed signs symptoms of worsening needing return to ER which she seems understanding. Stable for discharge. Counseled pt/family regarding: lab results, diagnosis, need for follow-up Medical Desision Making - Diagnostic Testing Diagnostic test were ordered, analyzed, and reviewed by me: Yes - Risk of complications The pt has a mod risk of morbidity or mortality based on: Need for prescription drug management - Departure Departure Disposition: Home Clinical Impression: Nausea/vomiting in , UTI in Condition: Stable Critical Care Time: No Referrals: DOCTOR,NO FAMILY [Primary Care Provider] - Follow up/PCP as directed LISA COPELAND DO [ACTIVE STAFF] - Follow up other (Call for appointment for reevaluation) Instructions: Hyperemesis Gravidarum (DC) Additional Instructions: Drink plenty fluids. Take Tylenol/Zofran as needed. Follow-up with primary care/primary OB for reevaluation. Return to ER for any worsening. Prescriptions: Nitrofurantoin Macro 100 mg [Macrobid 100MG Capsule] 100 mg PO BID #14 cap Ondansetron ODT 4 MG [Zofran Odt 4 mg] 1 ea PO QIDPRN PRN 10 Days #20 tablet PRN Reason: n/v
[2023-12-27] MEDS ORDERED: Macrobid 100MG Capsule ONE (17:56)
[2023-12-27] MEDS: Macrobid 100MG Capsule PO ONE (17:58)
[2023-12-27 19:51] LABS: Slide Review 1 YES
== END 2023-12-27 18:14 | disposition home or self-care (01) ==
LOC: ED 13:49
DX: O21.9 Vomiting of pregnancy, unspecified (principal); O23.41 Unspecified infection of urinary tract in pregnancy, first trimester; N39.0 Urinary tract infection, site not specified; Z3A.01 Less than 8 weeks gestation of pregnancy
CPT/HCPCS: 36000; 36415; 80053; 81001; 83690; 84702; 85025; 96360; 96374; 99284; J2405; A9270-GY

== ENCOUNTER 2024-04-29 10:46 | Observation (INO) | payer OTHER ==
[2024-04-29 13:16] VITALS: BP 118/76; PULSE 100; RESP 16; O2SAT 98
[2024-04-29 13:19] VITALS: TEMP 98.1
== END 2024-04-29 11:55 | disposition home or self-care (01) ==
LOC: MED SURG 10:46
PROVIDERS: ADMIT Obstetrics & Gynecology; ATTEND Obstetrics & Gynecology
DX: Z34.82 Encounter for supervision of other normal pregnancy, second trimester (principal); Z3A.24 24 weeks gestation of pregnancy
CPT/HCPCS: 82947; G0378; G0379

== ENCOUNTER 2024-08-09 06:13 | Inpatient (IN) | payer OTHER ==
[2024-08-09] MEDS ORDERED: Lactated Ringers 1,000 ML IV ONE (06:40)
[2024-08-09] MEDS ORDERED: OMNIPEN 2 GM ONE (06:43)
[2024-08-09] MEDS ORDERED: XYLOCAINE 1% HCL 20 ML MDV ONE (06:44)
[2024-08-09] MEDS ORDERED: Sodium Chloride 100ML MINI-BAG PLUS 100 ML IV ONE (06:44)
[2024-08-09] MEDS ORDERED: XYLOCAINE 1% HCL 20 ML MDV IJ PRN (06:47)
[2024-08-09] MEDS ORDERED: OMNIPEN 2 GM*** 2 G in Sodium Chloride 100ML MINI-BAG PLUS 100 ML IV ONE (06:47)
[2024-08-09] MEDS ORDERED: Zofran 4 MG/2 ML VIAL IV PRN (06:47)
[2024-08-09] MEDS ORDERED: CLINDAMYCIN-D5W 900 MG/50 ML*** 900 MG/50 ML BAG IV ONE (07:01)
[2024-08-09 07:04] LABS: Absolute Neutrophil Ct (ANC) 7.01 x10^3/uL (1.56-6.13); BASOPHIL % 0.3 % (0.1-1.2); Basophil (Absolute #) 0.03 x10^3/uL (0.01-0.08); Eosinophil % 0.4 % (0.7-5.8); Eosinophil (Absolute #) 0.04 x10^3/uL (0.04-0.36); Hematocrit 35.2 % (34.1-44.9); IMMATURE GRAN # 0.12 x10^3u/L (0.001-0.031); IMMATURE GRAN % 1.1 % (0.001-0.429); Lymphocyte (Absolute #) 2.79 x10^3/uL (1.18-3.74); Lymphocytes % 25.4 % (19.3-51.7); Mean Cell Volume 77.7 fL (79.4-94.8); Mean Corpuscular Hemoglobin 24.3 pg (25.6-32.2); Mean Corpuscular Hgb Concent. 31.3 g/dL (32.2-35.5); Mean Platelet Volume 10.6 fL (9.4-12.3); Monocyte (Absolute #) 0.99 x10^3/uL (0.24-0.86); Neutrophil % 63.8 % (34.0-71.1); Platelet Count 229 x10^3/uL (182-369); Red Blood Count 4.53 x10^6/uL (3.93-5.22); Red Cell Distribution Width 14.8 % (11.7-14.4)
[2024-08-09] MEDS ORDERED: Sensorcaine 0.25% 10 ML ONE (07:06)
[2024-08-09] MEDS ORDERED: PITOCIN 30 UNITS/ LR 500 ML 500 ML IV ONE (07:11)
[2024-08-09] MEDS: Lactated Ringers 1,000 ML IV SCH (07:30)
[2024-08-09] MEDS: CLINDAMYCIN-D5W 900 MG/50 ML*** 900 MG/50 ML BAG IV ONE (07:30)
[2024-08-09] MEDS: PITOCIN 30 UNITS/ LR 500 ML 30 UNITS/500 ML PLAST..BAG IV SCH (07:50)
[2024-08-09 08:09] LABS: ABO TYPING O; Antibody Screen NEGATIVE (NEGATIVE); RH TYPING POSITIVE
--- NOTE | 2024-08-09 08:14 | PCM.HP ---
History of Present Illness - Chief Complaint Chief Complaint: Spontaneous Labor Date: 08/09/24 History of Present Illness: is a 23 year old female at 38w4d admitted in active labor. She has been following with Obgyn but has not been seen in the past month. She has been having contractions throughout the night. has been uncomplicated. labs: Blood type: O+ Rubella Immune Serology NR HBsAg negative HIV negative GBS unknown - Review of Systems Constitutional: No Symptoms Respiratory: No Symptoms Cardiac: No Symptoms Skin: No Symptoms Neurological: No Symptoms Medications & Allergies Home Medications: Home Medication List No Reportable Medications [No Reported Medications] 04/29/24 [History Confirmed 04/29/24] Allergies/Adverse Reactions: Allergies Allergy/AdvReac Type Severity Reaction Status Date / Time Penicillins Allergy Mild Rash Verified 12/27/23 15:16 - Past Medical History Past Medical History: Yes Neurological History: No Pertinent History ENT History: No Pertinent History Cardiac History: No Pertinent History Respiratory History: No Pertinent History Endocrine Medical History: Hyperthyroidism Musculoskelatal History: No Pertinent History GI Medical History: No Pertinent History History: No Pertinent History Pyscho-Social History: Anxiety Reproductive Disorders: No Pertinent History - Female History Hx Last Menstrual Period: unknown - Past Surgical History Past Surgical History: No Neuro Surgical History: No Pertinent History Cardiac History: No Pertinent History Respiratory Surgery: No Pertinent History GI Surgical History: No Pertinent History Genitourinary Surgical Hx: No Pertinent History Musculskeletal Surgical Hx: No Pertinent History Female Surgical History: No Pertinent History - Social History Smoking Status: Never smoker Exposure to second hand smoke: No Alcohol: None Drug Use: none - Social Determinants of Health Will the patient participate in the screening: Yes Do you worry about a steady place to live?: No In the past 12 months,have you had to go without utilities?: No Have you or anyone in your house had to go without enough: No Transportation Issues: No Has anyone in your support network made you feel unsafe?: No Does the patient want assistance with any of the above?: No Comment: Requesting WIC. - Physical Exam General Appearance: mild distress Neurologic Exam: alert Respiratory Exam: normal breath sounds Cardiovascular Exam: regular rate/rhythm Gastrointestinal/Abdomen Exam: other (gravid) Pelvic Exam: other (CE: /-2 Anterior and soft FHR in 130s) Results - Labs Lab/Micro Results: Lab Results-Last 24 Hours 08/09/24 08/09/24 Range/Units 06:52 06:52 WBC 11.0 H (3.98-10.04) x10^3/uL RBC 4.53 (3.93-5.22) x10^6/uL Hgb 11.0 L (11.2-15.7) g/dL Hct 35.2 (34.1-44.9) % MCV 77.7 L (79.4-94.8) fL MCH 24.3 L (25.6-32.2) pg MCHC 31.3 L (32.2-35.5) g/dL RDW 14.8 H (11.7-14.4) % Plt Count 229 (182-369) x10^3/uL MPV 10.6 (9.4-12.3) fL Gran % 63.8 (34.0-71.1) % Immature Gran % (Auto) 1.1 H (0.001-0.429) % Nucleat RBC Rel Count 0.0 (0.00-0.2) % Eos # (Auto) 0.04 (0.04-0.36) x10^3/uL Immature Gran # (Auto) 0.12 H (0.001-0.031) x10^3u/L Absolute Lymphs (auto) 2.79 (1.18-3.74) x10^3/uL Absolute Monos (auto) 0.99 H (0.24-0.86) x10^3/uL Absolute Nucleated RBC 0.00 (0.00-0.012) x10^3u/L Lymphocytes % 25.4 (19.3-51.7) % Monocytes % 9.0 (4.7-12.5) % Eosinophils % 0.4 L (0.7-5.8) % Basophils % 0.3 (0.1-1.2) % Absolute Granulocytes 7.01 H (1.56-6.13) x10^3/uL Basophils # 0.03 (0.01-0.08) x10^3/uL ABO Group O Rh Factor POSITIVE Antibody Screen NEGATIVE (NEGATIVE) Assessment/Plan (1) Vaginal delivery Current Visit: No Status: Acute Assessment & Plan: 1. Maternal Well being: Good 2. well being: Good 3. Active labor 4. Pain management: None 5. GBS unknown. Treat with clindamycin Code(s): O80 - ENCOUNTER FOR FULL-TERM UNCOMPLICATED DELIVERY
[2024-08-09] MEDS ORDERED: TYLENOL EXTRA STRENGTH 500 MG ONE (08:34)
[2024-08-09] MEDS ORDERED: Anucort-HC SUPPOSITORY PR PRN (08:58)
[2024-08-09] MEDS ORDERED: MOTRIN 400 MG PO PRN (08:58)
[2024-08-09] MEDS ORDERED: Mylicon 80MG PO PRN (08:58)
[2024-08-09] MEDS ORDERED: Dulcolax 10 MG SUPP PR PRN (08:58)
[2024-08-09] MEDS: TYLENOL EXTRA STRENGTH 500 MG PO PRN (09:02)
[2024-08-09] MEDS ORDERED: ZOFRAN ODT 4 MG ONE (09:05)
[2024-08-09] MEDS: ZOFRAN ODT 4 MG PO PRN (09:06)
[2024-08-09] MEDS: Dermoplast Spray TP PRN (09:30)
[2024-08-09] MEDS: TUCKS TP PRN (09:31)
[2024-08-09] MEDS: LANSINOH 40 GM TOP PRN (09:31)
[2024-08-09] MEDS: CORTISONE 1% CREAM TP PRN (09:31)
[2024-08-09] MEDS: FERREX 150 PO SCH (15:27)
[2024-08-09] MEDS: Docusate Sodium 100 MG PO SCH (15:27)
[2024-08-10 06:05] LABS: Absolute Neutrophil Ct (ANC) 10.57 x10^3/uL (1.56-6.13); BASOPHIL % 0.2 % (0.1-1.2); Basophil (Absolute #) 0.03 x10^3/uL (0.01-0.08); Eosinophil % 0.1 % (0.7-5.8); Eosinophil (Absolute #) 0.02 x10^3/uL (0.04-0.36); Hematocrit 33.6 % (34.1-44.9); Hemoglobin 10.5 g/dL (11.2-15.7); IMMATURE GRAN # 0.14 x10^3u/L (0.001-0.031); Lymphocyte (Absolute #) 2.45 x10^3/uL (1.18-3.74); Lymphocytes % 17.1 % (19.3-51.7); Mean Cell Volume 77.6 fL (79.4-94.8); Mean Corpuscular Hemoglobin 24.2 pg (25.6-32.2); Mean Corpuscular Hgb Concent. 31.3 g/dL (32.2-35.5); Mean Platelet Volume 10.2 fL (9.4-12.3); Monocyte (Absolute #) 1.11 x10^3/uL (0.24-0.86); Monocytes % 7.8 % (4.7-12.5); Neutrophil % 73.8 % (34.0-71.1); Platelet Count 208 x10^3/uL (182-369); Red Blood Count 4.33 x10^6/uL (3.93-5.22); Red Cell Distribution Width 14.6 % (11.7-14.4); White Blood Count 14.3 x10^3/uL (3.98-10.04)
[2024-08-10 09:18] LABS: RPR Non Reactive (Non Reactive)
--- NOTE | 2024-08-10 10:01 | PCM.DS ---
Discharge Summary Date of Admission: 08/09/24 06:13 Date of Discharge: 08/11/24 Admitting Physician: KALEE CASTANEDA MD Consults: Consults on Case 08/09/24 06:55 Notify Anesthesia Provider ROUTINE 08/09/24 08:58 Notify Physician ROUTINE Primary Care Provider: VENICE ALBERT Allergies Allergies Penicillins Allergy (Mild, Verified 08/09/24 21:39) [facility] Hospital Summary - Hospital Course Hospital Course: Sole is a 23 yo who delivered a viable female via @ 38w4d gestation. The delivery was uncomplicated. She did well in the period. She was ambulatory and pain adequately controlled with oral medications. She is bottle feeding. She has not decided on contraception at this time. With her stable course, she was discharged on PPD2 for outpatient follow up. - Vitals & Intake/Output Vital Signs: Vital Signs Temperature 97.8 F 08/10/24 08:00 Pulse Rate 87 08/10/24 08:00 Respiratory Rate 14 08/10/24 08:00 Blood Pressure 106/68 08/10/24 08:00 O2 Sat by Pulse Oximetry 100 08/10/24 08:00 - Lab Result Diagrams: 08/10/24 06:04 Lab Results-Last 24 Hrs: Lab Results-Last 24 Hours 08/09/24 08/10/24 Range/Units 06:52 06:04 WBC 14.3 H (3.98-10.04) x10^3/uL RBC 4.33 (3.93-5.22) x10^6/uL Hgb 10.5 L (11.2-15.7) g/dL Hct 33.6 L (34.1-44.9) % MCV 77.6 L (79.4-94.8) fL MCH 24.2 L (25.6-32.2) pg MCHC 31.3 L (32.2-35.5) g/dL RDW 14.6 H (11.7-14.4) % Plt Count 208 (182-369) x10^3/uL MPV 10.2 (9.4-12.3) fL Gran % 73.8 H (34.0-71.1) % Immature Gran % (Auto) 1.0 H (0.001-0.429) % Nucleat RBC Rel Count 0.0 (0.00-0.2) % Eos # (Auto) 0.02 L (0.04-0.36) x10^3/uL Immature Gran # (Auto) 0.14 H (0.001-0.031) x10^3u/L Absolute Lymphs (auto) 2.45 (1.18-3.74) x10^3/uL Absolute Monos (auto) 1.11 H (0.24-0.86) x10^3/uL Absolute Nucleated RBC 0.00 (0.00-0.012) x10^3u/L Lymphocytes % 17.1 L (19.3-51.7) % Monocytes % 7.8 (4.7-12.5) % Eosinophils % 0.1 L (0.7-5.8) % Basophils % 0.2 (0.1-1.2) % Absolute Granulocytes 10.57 H (1.56-6.13) x10^3/uL Basophils # 0.03 (0.01-0.08) x10^3/uL RPR Non Reactive (Non Reactive) Hep Bs Antigen Pending - Procedures and Test Procedures and Tests throughout Hospitalization: Therapy Orders & Screens 08/09/24 07:10 Standby ROUTINE Comment: Diagnosis: Spontaneous Labor Discharge Exam Comments: Gen: Pleasant 23 yo woman in no distreass Lungs: CTAB with good air movement CV: RRR, no murmur, 2 + pedal and radial pulses bilaterally Abd: Fundus firm, 2-3 cm below the umbilicus, appropriate tenderness Ext: No leg edema bilaterally. Calves non-tender bilaterally Final Diagnosis/Problem List - Final Discharge Diagnosis/Problem (1) Vaginal delivery Current Visit: No Status: Acute Code(s): O80 - ENCOUNTER FOR FULL-TERM UNCOMPLICATED DELIVERY - Discharge Disposition: Home, Self-Care Condition: Stable Prescriptions: New Docusate Sodium [Laxa Basic 100] 100 mg PO DAILY #60 cap Additional Instructions: PLEASE RETURN TO THE OB UNIT ON SUNDAY, August FOR [facility] YOU HAVE AND APPOINTMENT WITH DR MONK ON SundaySEPTEMBER 01 AT 1230 PM PLEASE CALL THE OB UNIT OR DR CASTANEDA'S OFFICE WITH ANY QUESTIONS OR CONCERNS OR GO TO YOUR NEAREST EMERGENCY ROOM. Follow up with: KALEE CASTANEDA MD [ACTIVE STAFF] - 3 weeks (You have an appointment with Dr Monk on SundaySeptember 01 at 1230 pm ) Forms: OB Discharge Instructions
--- NOTE | 2024-08-10 13:37 | PCM.NOTE ---
Date and Time: 08/10/24 9773 Subjective Assessment: Sole is a 23 yo now ppd 1 s/p . Doing well. Abdominal/pelvic pain controlled with oral medication. Lochia is minimal. She is voiding, she has had a BM and is eating without difficulty. She is bottle feeding. Objective Exam Comments: 08/10/24 13:34 Gen: Pleasant 23 yo woman in no distreass Lungs: CTAB with good air movement CV: RRR, no murmur, 2 + pedal and radial pulses bilaterally Abd: Fundus firm, 2-3 cm below the umbilicus, appropriate tenderness Ext: No leg edema bilaterally. Calves non-tender bilaterally Objective Data Vital Signs: Vital Signs - 24 hr Temp Pulse Resp BP Pulse Ox 08/10/24 08:00 97.8 F 87 14 106/68 100 08/10/24 02:00 98.5 F 73 18 104/67 97 08/09/24 20:00 98.7 F 90 18 123/93 98 08/09/24 18:00 98.2 F 74 16 114/62 99 08/09/24 15:15 97.9 F 65 16 117/70 100 Pain Assessment - Last Documented Pain Intensity [Lower] 2 Pain Intensity 0 Pain Scale Used 0-10 Pain Scale Lab Results: Laboratory Tests 08/09/24 08/09/24 08/09/24 06:52 06:52 06:52 WBC 11.0 H RBC 4.53 Hgb 11.0 L Hct 35.2 MCV 77.7 L MCH 24.3 L MCHC 31.3 L RDW 14.8 H Plt Count 229 MPV 10.6 Gran % 63.8 Immature Gran % (Auto) 1.1 H Nucleat RBC Rel Count 0.0 Eos # (Auto) 0.04 Immature Gran # (Auto) 0.12 H Absolute Lymphs (auto) 2.79 Absolute Monos (auto) 0.99 H Absolute Nucleated RBC 0.00 Lymphocytes % 25.4 Monocytes % 9.0 Eosinophils % 0.4 L Basophils % 0.3 Absolute Granulocytes 7.01 H Basophils # 0.03 RPR Non Reactive ABO Group O Rh Factor POSITIVE Antibody Screen NEGATIVE 08/10/24 06:04 WBC 14.3 H RBC 4.33 Hgb 10.5 L Hct 33.6 L MCV 77.6 L MCH 24.2 L MCHC 31.3 L RDW 14.6 H Plt Count 208 MPV 10.2 Gran % 73.8 H Immature Gran % (Auto) 1.0 H Nucleat RBC Rel Count 0.0 Eos # (Auto) 0.02 L Immature Gran # (Auto) 0.14 H Absolute Lymphs (auto) 2.45 Absolute Monos (auto) 1.11 H Absolute Nucleated RBC 0.00 Lymphocytes % 17.1 L Monocytes % 7.8 Eosinophils % 0.1 L Basophils % 0.2 Absolute Granulocytes 10.57 H Basophils # 0.03 RPR ABO Group Rh Factor Antibody Screen Assessment/Plan (1) Vaginal delivery Current Visit: No Status: Acute Assessment & Plan: 23 yo ppd1 s/p - Doing well. No complications. Continue routine care. Plan for discharge PPD 2 Code(s): O80 - ENCOUNTER FOR FULL-TERM UNCOMPLICATED DELIVERY
[2024-08-11 05:35] VITALS: RESP 18; TEMP 97.9; O2SAT 99
[2024-08-11 11:23] LABS: HBsAg Screen Negative (Negative)
[2024-08-11 11:46] VITALS: BP 99/63; PULSE 100
== END 2024-08-11 12:53 | disposition home or self-care (01) | DRG 807 ==
LOC: MED SURG 06:13 → OBSVTOIN 06:13 → OB 06:14
PROVIDERS: ADMIT Family Medicine; ATTEND Family Medicine
PROC: 10E0XZZ Delivery of Products of Conception, External Approach (ICD-10-PCS; principal; 2024-08-09)
DX: O80 Encounter for full-term uncomplicated delivery (principal); Z37.0 Single live birth; Z3A.38 38 weeks gestation of pregnancy
CPT/HCPCS: 36415; 85025; 86592; 86850; 86900; 86901; 87340; 94799; J0290; J2590; Q0162; A9270-GY